=== PATIENT | female | born 1985 | race Caucasian/White ===

== ENCOUNTER 2016-06-10 07:37 | Emergency (ER) | payer OTHER ==
[~2016-06-10] VITALS: Ht 175.3 cm; Wt 86.2 kg
[2016-06-10] MEDS ORDERED: ONDANSETRON 4MG/2ML VIAL (J2405) IV ONE (08:15)
[2016-06-10] MEDS ORDERED: MORPHINE 2 MG/ML 1ML SYRINGE IV PRN (08:15)
[2016-06-10] MEDS ORDERED: NS 1,000 ML IV ONE (08:15)
[2016-06-10 08:33] LABS: EOS % 0.3 % (0.0-3.0); LARGE UNSTAINED CELL # 0.1 K/mm3 (0.0-0.4); LARGE UNSTAINED CELL % 0.4 % (0.0-4.0); LYMPH # 0.6 K/mm3 (1.5-4.5); LYMPH % 4.6 % (24.0-44.0); MEAN CORPUSCULAR HGB CONC 31.1 g/dl (32.0-36.5); MEAN CORPUSCULAR VOLUME 80.4 fl (80.0-96.0); MONO # 0.7 K/mm3 (0.0-0.8); MONO % 5.1 % (0.0-5.0); NEUTROPHILS # 11.3 K/mm3 (1.8-7.7); NEUTROPHILS % 89.5 % (36.0-66.0); PLATELET COUNT, AUTOMATED 244 k/mm3 (150-450); WHITE BLOOD COUNT 12.7 K/mm3 (4.0-10.0)
[2016-06-10] MEDS ORDERED: ASPIRIN 81 MG CHEW TABLET PO ONE (08:45)
[2016-06-10 08:55] LABS: CONTROL LINE HCG INT CTR LINE PRESENT
[2016-06-10 09:06] LABS: ALBUMIN 3.9 GM/DL (3.2-5.2); ALBUMIN/GLOBULIN RATIO 1.03 (1.00-1.93); ALKALINE PHOSPHATASE 69 U/L (45-117); ALT/SGPT 18 U/L (12-78); ANION GAP 7 MEQ/L (8-16); AST/SGOT 17 U/L (15-37); BILIRUBIN,DIRECT < 0.1 MG/DL (0.0-0.2); BILIRUBIN,TOTAL 0.3 MG/DL (0.2-1.0); BLOOD UREA NITROGEN 10 MG/DL (7-18); CALCIUM LEVEL 8.5 MG/DL (8.5-10.1); CARBON DIOXIDE LEVEL 27 MEQ/L (21-32); CHLORIDE LEVEL 103 MEQ/L (98-107); GLOMERULAR FILTRATION RATE > 60.0 (>60); GLUCOSE, FASTING 145 MG/DL (70-105); POTASSIUM SERUM 3.7 MEQ/L (3.5-5.1); SODIUM LEVEL 137 MEQ/L (136-145); TOTAL PROTEIN 7.7 GM/DL (6.4-8.2)
[2016-06-10] MEDS ORDERED: GI COCKTAIL 50ML BTL(HYOSCYAMINE/MAALOX/LIDOCAINE VISCOUS)(1:3:1) PO ONE (09:30)
[2016-06-10] MEDS ORDERED: ISOVUE-370 76% 100ML VIAL (Q9967) As Ordered ONE (09:55)
--- NOTE | 2016-06-10 11:03 | REP ---
PORTABLE CHEST: Single view. There is no evidence of acute infiltrate. No pleural effusion is seen. The heart is normal in size. The mediastinal silhouette is unremarkable. The visualized osseous structures are intact. IMPRESSION: No acute pulmonary disease. Signed by Elio Walker MD 06/10/2016 08:30 P
--- NOTE | 2016-06-10 12:09 | REP ---
CT ANGIOGRAM OF THE CHEST: TECHNIQUE: Axial contrast enhanced images from the thoracic inlet to the upper abdomen using 100 mL Isovue 370 intravenous contrast material with multiplanar reformations. The study is somewhat limited due to scanner malfunction with delayed triggering of scanning resulting in contrast bolus more so in the thoracic aorta than the pulmonary arteries. There is no definite central pulmonary embolism identified. There is no evidence of thoracic aortic dissection or aneurysm. The heart is normal in size. There is no pleural or pericardial effusion. There is no evidence of mediastinal, hilar or chest wall lymphadenopathy. There is mild right lower lobe bronchiectasis. Mild scattered fibrotic scarring is seen throughout the right lung. No consolidating infiltrate is seen. IMPRESSION: Somewhat limited exam. No definite central pulmonary embolism. The scan was triggered in a more delayed phase of the contrast bolus. Mild right lower lobe bronchiectasis with mild scattered right lung scarring. Signed by Elio Walker MD 06/10/2016 08:32 P
--- NOTE | 2016-06-10 12:35 | REP ---
CT ABDOMEN AND PELVIS WITH IV CONTRAST: TECHNIQUE: Axial contrast enhanced images from the lung bases to the pubic symphysis using 100 mL Isovue 370 intravenous contrast material with multiplanar reformations. The liver appear unremarkable. Multiple gallstones are seen in a moderately distended gallbladder. The largest gallstone measures approximately 1.6 cm in diameter. The central column bile duct is at the upper limits of normal in diameter at 7 mm. The spleen, adrenals, pancreas and kidneys appear unremarkable. There is no hydronephrosis. There is no abdominal aortic aneurysm. I see no adenopathy. There is no free air. There is no bowel wall thickening. The appendix is normal. There is no evidence of a pelvic mass. There is mild free fluid in the pelvis. Urinary bladder is grossly unremarkable. IMPRESSION: Multiple gallstones in a moderately distended gallbladder. The common bile duct appears to be at the upper limits of normal in caliber at 7 mm. No free air. No evidence of appendicitis. No adenopathy. Mild free fluid in the pelvis is nonspecific. Signed by Elio Walker MD 06/10/2016 08:32 P
[2016-06-10] MEDS ORDERED: IBUP600T26 PO (13:03)
[2016-06-10] MEDS ORDERED: OXYC1TAB23 PO (13:03)
[2016-06-10] MEDS ORDERED: ZOFR20TA PO (13:03)
--- NOTE | 2016-06-10 13:12 | ECGEPIP ---
Stationary ECG Study [facility] Test Date: 2016-06-10 Pat Name: AREN DAMIAN Department: Room: - Gender: F Access Liaison: ct : 1985 Requested By: Radhika Yap Order Number: [id number] Reading MD: Sinan Buckner Measurements Intervals [place] Rate: 45 P: 22 TX: 164 QRS: 74 QRSD: 94 T: 11 QT: 429 QTc: 374 Interpretive Statements SINUS BRADYCARDIA Nonspecific ST-T wave abnormalities Comparison tracing not on file Electronically Signed On 06-10-2016 13:12:22 EST by Sinan Buckner
--- NOTE | 2016-06-10 13:42 | REP ---
Abdominal pain. No comparison. Prior CT earlier today showed 7 mm size common bile duct. Multiple sonographic images of the gallbladder show numerable echogenic foci within the gallbladder lumen which are mobile casting acoustic shadows, the largest measures approximately 1.5 cm seen in the gallbladder neck region. T here is diffuse gallbladder wall thickening but no evidence of pericholecystic edema. The common bile duct measures 5 mm upper limits of normal for the patient's age. The hepatic parenchymal echo pattern is normal. There is no intrahepatic ductal dilatation and there are no masses. The imaged portion of the pancreas and right kidney are within normal limits. No free fluid is seen in the abdomen. IMPRESSION: Cholelithiasis and chronic gallbladder wall changes are suspected as described above. Clinical correlation is necessary to rule out acute cholecystitis. The common bile duct is upper limits of normal. Although choledocholithiasis is not seen by this examination, it cannot be completely ruled out since not all of the common bile duct can be images ultrasonographically. Signed by Rajesh Negron DO 06/10/2016 04:45 P
[2016-06-10 13:43] VITALS: BP 133/79
--- NOTE | 2016-06-11 07:33 | ED PDOC ---
Provider Note dr gandara faxed formal report of gb [facility] fo fu. late entry for visit 06/10/16 - pt 's deployed. she was aware of dx and was painfree at [facility]. she preferred outpt follow up and dr gandara is available. Radhika Sarmiento MD Jun 11, 2016 07:33
== END 2016-06-10 14:15 | disposition home or self-care (01) ==
LOC: EDBD 07:37 → M ED 08:27
DX: K80.20 Calculus of gallbladder without cholecystitis without obstruction (principal); R07.9 Chest pain, unspecified; R11.10 Vomiting, unspecified; R94.31 Abnormal electrocardiogram [ECG] [EKG]; K21.9 Gastro-esophageal reflux disease without esophagitis
CPT/HCPCS: 71010; 71275; 74177; 76705; 80048; 80076; 82550; 82553; 83690; 84703; 85025; 85379; 87804; 93005; 93041; 94760; 96374; 96375; 99285; J2405; Q9967

== ENCOUNTER → 2016-06-29 | Day surgery (SDC) | payer OTHER ==
[~2016-06-29] VITALS: Ht 167.6 cm; Wt 89.8 kg
[~2016-06-29] MED LIST: AMPICILLIN SOD/SULBACTAM SOD 3 GM in D5W MINI-BAG PLUS 100 ML IV ONE; BUPIVACAINE HCL 0.25% 30 ML VIAL As Ordered ONE; CONRAY-60 60% 50ML VIAL (Q9961) As Ordered ONE; GLYCOPYRROLATE INJ 0.2 MG/ML 2 ML VIAL As Ordered ONE; HYDROmorphone HCL 1 MG/ML SYRINGE (J1170) IV PRN; IBUP600T26 PO; KETOROLAC 30 MG/ML VIAL (J1885) IV PRN; LIDOCAINE 1% SDV INJ 30 ML VIAL As Ordered ONE; LIDOCAINE 2% INJ 100 MG/5 ML SDV (FOR ANES.) As Ordered ONE; LR 1,000 ML IV SCH; MIDAZOLAM INJ 2 MG/2 ML VIAL (J2250) As Ordered ONE; NEOSTIGMINE 1MG/ML 5 ML SYRINGE (J2710) As Ordered ONE; NORCO, ANEXSIA 5/325MG TABLET (HYDROcodone/ACETAMINOPHEN) PO PRN; ONDANSETRON 4MG/2ML VIAL (J2405) As Ordered ONE; ONDANSETRON 4MG/2ML VIAL (J2405) IV PRN; OXYC1TAB23 PO; PANTOPRAZOLE 40MG TAB (PROTONIX) PO ONE; PERCOCET 5MG/325MG TAB PO PRN; PROPOFOL 200 MG/20 ML VIAL As Ordered ONE; ROCURONIUM BROMIDE 50 MG/5 ML VIAL As Ordered ONE; VICO5TAB16 PO; ZOFR20TA PO; dexameTHASONE 4 MG/ML 1ML VIAL (J1100) As Ordered ONE; ePHEDrine SULFATE 25 MG/5 ML(5MG/ML) SYRINGE As Ordered ONE; fentaNYL 100 MCG/2 ML INJECTION (J3010) As Ordered ONE
[2016-06-29 13:56] LABS: CONTROL LINE HCG INT CTR LINE PRESENT
--- NOTE | 2016-06-29 16:46 | REP ---
Clinical: Common bile duct dilatation. Evaluate for choledocholithiasis. Technique: Intraoperative cholangiogram. Findings: Single fluoroscopic image from intraoperative cholangiogram demonstrates contrast outlining the common bile duct, cystic duct and common hepatic ducts. No filling defects are identified to suggest choledocholithiasis. Contrast noted extending into the normal adjacent duodenum. Total fluoroscopic time 60 seconds. Impression: No evidence for obstructing choledocholiths. Signed by Adriel Rueda MD 06/29/2016 04:38 P
[2016-06-29] MEDS: fentaNYL 100 MCG/2 ML INJECTION (J3010) IV PRN ×4 (17:28→17:43)
--- NOTE | 2016-06-29 19:01 | RO ---
DATE OF PROCEDURE: 06/29/2016 PREOPERATIVE DIAGNOSIS: Symptomatic cholelithiasis, acute cholecystitis. POSTOPERATIVE DIAGNOSIS: Symptomatic cholelithiasis, acute cholecystitis. OPERATIVE PROCEDURE: Laparoscopic cholecystectomy with intraoperative cholangiogram. SURGEON: Naveed Rodgers MD POSTAL DELIVERY OFFICER: Dr. Rios ANESTHESIA: General anesthesia. ESTIMATED BLOOD LOSS: 25 mL COMPLICATIONS: None. REMARKS: The patient tolerated the procedure well. PREPROCEDURE NOTE: Intraoperative cholangiogram was done for patient's preoperative findings of mildly enlarged common bile duct. The biliary tree was found to be of normal caliber and course. No obstructive stones were found. Ms. Lake was seen at the emergency room early in June for sudden onset of abdominal pain over the right upper quadrant area after eating consistent with severe biliary colic. She continues to have pain after being sent home and was seen in my clinic. She had symptoms for her gallstones. She was also found to have mildly enlarged common bile duct. She was advised to consult to surgery. Plan is to perform laparoscopic cholecystectomy with intraoperative cholangiogram. DESCRIPTION OF PROCEDURE: The patient was taken to the OR after be given Unasyn, 3 grams IV preoperatively for prophylaxis. General endotracheal anesthesia started without any problems. Her abdomen prepped and draped in the usual sterile fashion. After a surgical time-out we began our surgery. Entry into the abdomen done through the site above the umbilicus. A Veress needle inserted in controlled fashion. CO2 insufflation started to pressure of 58 mmHg. A 5 mm Visiport was placed under direct vision of laparoscope. She was then placed on a head-up position, right side tilted up to further expose the gallbladder. Three working ports were placed under direct vision and an 11 mm epigastric port and two 5 mm ports on the right side. The fundus of the gallbladder was grasped. The gallbladder itself is clinically thickened, mildly acutely inflamed, filled with stones and distended. There seems to be a large stone towards the body and neck of the gallbladder. The peritoneum was opened up over the neck of the gallbladder with a [place] instrument. Dissection was started over the hepatocystic triangle. The common bile duct was identified, seems to be enlarged. After further dissection, there was a small artery running parallel to it, which was a branch off the cystic artery. This was dissected free and clipped and divided. The dissection was pursued up until the cystic artery was likewise found, and we had a critical view of safety. The Arrington clamp was then used for the cholangiogram. The neck the gallbladder was grasped. The needle inserted under direct vision. This was noted to be aspirating and flushing well. After repositioning the patient with the C-arm in place the cholangiogram was performed. This was interpreted by me. No abnormalities were found. The biliary tree was found to be of normal caliber. No stones were found. We then proceeded with the surgery. The cystic artery, then the cystic duct was clipped four times and divided. The rest of the gallbladder was then removed. There is some minor bleeding in the top portion of the capsule of the gallbladder bed. This was easily cauterized. The gallbladder delivered in Endo Catch bag; retrieved through the epigastric port site we enlarged to accommodate the large stone. Following insufflation, irrigation was performed. Clips were noted to be in place. All visible irrigant suctioned off. The abdomen was deflated. All ports removed. The epigastric fascial defect repaired with #0 Vicryl in mattress fashion. The rest of the incisions closed with #4-0 Monocryl in subcuticular fashion. Steri-Strips and dressings placed. The patient awakened, extubated, brought to recovery room, stable.
[2016-06-29 19:45] VITALS: BP 132/84
== END ==
LOC: M SDC 12:39
PROVIDERS: ATTEND Surgery
DX: K80.12 Calculus of gallbladder with acute and chronic cholecystitis without obstruction (principal); K21.9 Gastro-esophageal reflux disease without esophagitis; Z79.899 Other long term (current) drug therapy
CPT/HCPCS: 36415; 47563; 74300; 84703; 88304; J1100; J1885; J2250; J2405; J2710; J3010; Q9961